=== PATIENT | male | born 1945 | race American Indian/Alaskan Native ===

== ENCOUNTER 2023-09-03 08:18 | Day surgery (SDC) | payer OTHER ==
[~2023-09-03] VITALS: Ht 175.3 cm; Wt 80.9 kg
[~2023-09-03 08:18] MED LIST: ASPI81EC PO; FAMO20 PO
--- NOTE | 2023-09-03 08:52 | NUR ---
09/03/23 0852 Stephen Painting CALL LIGHT WITHIN REACH. FAMILY AT BEDSIDE
[2023-09-03 10:59] VITALS: BP 106/71
== END 2023-09-03 10:30 | disposition home or self-care (01) ==
LOC: ORSCSDS 08:18
PROVIDERS: Surgery
PROC: 0DBL8ZX Excision of Transverse Colon, Via Natural or Artificial Opening Endoscopic, Diagnostic (ICD-10-PCS; principal; 2023-09-03 09:30)
DX: Z12.11 Encounter for screening for malignant neoplasm of colon (principal); Z86.010 Personal history of colon polyps; Z80.0 Family history of malignant neoplasm of digestive organs; D12.3 Benign neoplasm of transverse colon; E78.5 Hyperlipidemia, unspecified; Z79.82 Long term (current) use of aspirin
CPT/HCPCS: 88305; J0461; J2001; J2405; J2704; J7120; Q9968